=== PATIENT | female | born 1935 | race Caucasian/White ===

== ENCOUNTER 2020-08-17 19:36 | Emergency (ER) | payer MEDICARE ==
[2020-08-17 19:52] VITALS: TEMP 98
--- NOTE | 2020-08-17 19:55 | ED ---
Fall HPI - General Chief Complaint: Fall Stated Complaint: Fall - Head Injury Time Seen by Provider: 08/17/20 19:54 Source: patient, family, RN notes reviewed, old records reviewed Mode of arrival: wheelchair Limitations: no limitations - History of Present Illness Initial Comments: This is an 85-year-old female DF for evaluation patient poor historian secondary to clinical condition Parkinson's disease. Patient has history of falls multiple falls and did have a fall with head injury tonight. 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 ROS Other: All systems not noted in ROS Statement are negative. Past Medical History Past Medical History: Hypertension, Osteoarthritis (OA) Additional Past Medical History / Comment(s): parkinsons , spinal stenosis , drop foot right side History of Any Multi-Drug Resistant Organisms: None Reported Past Surgical History: Back Surgery, Joint Replacement, Tonsillectomy Past Psychological History: No Psychological Hx Reported Smoking Status: Former smoker Past Alcohol Use History: None Reported Past Drug Use History: None Reported General Exam Limitations: physical limitation General appearance: alert, in no apparent distress Head exam: Present: atraumatic, normocephalic, normal inspection Eye exam: Present: normal appearance, PERRL, EOMI. Absent: scleral icterus, conjunctival injection, periorbital swelling ENT exam: Present: normal exam, mucous membranes moist Neck exam: Present: normal inspection. Absent: tenderness, meningismus, lymphadenopathy Respiratory exam: Present: normal lung sounds bilaterally. Absent: respiratory distress, wheezes, rales, rhonchi, stridor Cardiovascular Exam: Present: regular rate, normal rhythm, normal heart sounds. Absent: systolic murmur, diastolic murmur, rubs, gallop, clicks GI/Abdominal exam: Present: soft, normal bowel sounds. Absent: distended, tenderness, guarding, rebound, rigid Extremities exam: Present: normal inspection, full ROM, normal capillary refill. Absent: tenderness, pedal edema, joint swelling, calf tenderness Back exam: Present: normal inspection Neurological exam: Present: alert, oriented X3, CN II-XII intact Psychiatric exam: Present: normal affect, normal mood Skin exam: Present: warm, dry, intact, normal color. Absent: rash Course Vital Signs 08/17/20 08/17/20 19:47 20:44 Temperature 98 F Pulse Rate 87 65 Respiratory 16 18 Rate Blood Pressure 134/63 126/64 O2 Sat by Pulse 90 L 96 Oximetry - Reevaluation(s) Reevaluation #1: 08/17/20 20:31 Medical records reviewed Medical Decision Making - Medical Decision Making 85 female DF status post fall patient does have hematoma multiple falls with head injury. No nothing broke patient can be discharged home - Radiology Data Radiology results: report reviewed (CT brain C-spine and facial bones chest x- ray and pelvis negative for acute disease), image reviewed Disposition Clinical Impression: Fall, Head injuries Disposition: HOME SELF-CARE Condition: Good Instructions (If sedation given, give patient instructions): Fall Prevention for Older Adults (ED) Is patient prescribed a controlled substance at d/c from ED?: No Referrals: Matteo Cee MD [Primary Care Provider] - 1-2 days
--- NOTE | 2020-08-17 20:31 | XR ---
EXAMINATION TYPE: XR pelvis AP view DATE OF EXAM: 08/17/2020 COMPARISON: NONE HISTORY: Fall. Pain. TECHNIQUE: Single view FINDINGS: Pelvic ring is intact. 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 Sacroiliac joints are intact. The re is no sign of fracture nor dislocation. There are spondylotic changes in the lower lumbar spine. T here is a pessary noted. IMPRESSION: No acute abnormality of the pelvis.
--- NOTE | 2020-08-17 20:32 | XR ---
EXAMINATION TYPE: XR chest 1V DATE OF EXAM: 08/17/2020 COMPARISON: NONE HISTORY: Fall. Pain. TECHNIQUE: Single view FINDINGS: There is a large hiatal hernia. There is no heart failure. Costophrenic angles are clear. T here are no hilar masses. Thoracic aorta is atheromatous. IMPRESSION: No active cardiopulmonary disease. Large hiatal hernia.
--- NOTE | 2020-08-17 20:38 | CT ---
EXAMINATION TYPE: CT brain lyle wo con DATE OF EXAM: 08/17/2020 COMPARISON: None HISTORY: fall, contusion and bruising around left eye CT DLP: combined DLP 1017.8 mGycm Automated exposure control for dose reduction was used. There is cerebral atrophy. There is no mass effect nor midline shift. There is no sign of intracrania l hemorrhage. There is mild hypodensity in the periventricular white matter. There is hyperostosis fr ontalis. The calvarium is intact. Skull base is intact. There is normal aeration of the mastoid sinus es. Cervical vertebra have normal alignment. There is disc space narrowing at C5-6 and C6-7 with spurring . There is multilevel mild cervical facet arthropathy. There is no evidence of a fracture. Occipital bone is intact. Atlantoaxial facet joint is normal. IMPRESSION: Spondylotic changes at C5-6 and C6-7. No fracture. Cerebral atrophy. No acute intracranial abnormality. Mild left frontal scalp soft tissue swelling not ed.
--- NOTE | 2020-08-17 20:40 | CT ---
EXAMINATION TYPE: CT facial bones wo con DATE OF EXAM: 08/17/2020 COMPARISON: None HISTORY: fall, contusion and bruising around left eye CT DLP: combined DLP 1017.8 mGycm Automated exposure control for dose reduction was used. Images were obtained from the bottom of the mandible to the top of the frontal sinuses without contra st. Orbital margins are intact. Nasal bone is intact. The globes are symmetric. There is no evidence of a retro-orbital mass. There is no evidence of blowout fracture. There is small mucus retention cyst in the left maxillary sinus. Zygomatic arches appear normal. The maxilla is intact. Mandibular ring is intact. Temporomandibular joints appear normal. There is mild scalp soft tissue swelling over the left side frontal bone. IMPRESSION: Small left frontal scalp hematoma. No fracture seen.
[2020-08-17 20:48] VITALS: BP 126/64; PULSE 65; RESP 18
== END 2020-08-17 21:20 | disposition home or self-care (01) ==
LOC: EC 19:36
DX: S00.03XA Contusion of scalp, initial encounter (principal); Z96.60 Presence of unspecified orthopedic joint implant; Z87.891 Personal history of nicotine dependence; W01.0XXA Fall on same level from slipping, tripping and stumbling without subsequent striking against object, initial encounter; Y93.89 Activity, other specified; Y92.092 Bedroom in other non-institutional residence as the place of occurrence of the external cause
CPT/HCPCS: 70450; 70486; 71045; 72125; 72170; 99284

== ENCOUNTER 2020-09-04 20:25 | Emergency (ER) | payer MEDICARE ==
[2020-09-04 21:46] LABS: Basophils # (A) 0.1 k/uL (0-0.2); Basophils % (A) 1 %; Eosinophils # (A) 0.1 k/uL (0-0.7); Eosinophils % (A) 1 %; HCT 44.6 % (34.0-46.0); Lymphocytes # (A) 0.9 k/uL (1.0-4.8); Lymphocytes % (A) 9 %; MCH 29.6 pg (25.0-35.0); MCHC 31.3 g/dL (31.0-37.0); MCV 94.6 fL (80.0-100.0); Mean Platelet Volume 7.9; Monocytes # (A) 0.6 k/uL (0-1.0); Monocytes % (A) 7 %; Neutrophils # (A) 7.3 k/uL (1.3-7.7); Neutrophils % (A) 80 %; Platelet Count 192 k/uL (150-450); RBC 4.71 m/uL (3.80-5.40); RDW 13.6 % (11.5-15.5); WBC 9.1 k/uL (3.8-10.6)
[2020-09-04 21:55] LABS: Albumin 3.8 g/dL (3.5-5.0); Calcium 9.2 mg/dL (8.4-10.2); Total Bilirubin 0.7 mg/dL (0.2-1.3); Total Protein 6.8 g/dL (6.3-8.2)
[2020-09-04] MEDS ORDERED: cefTRIAXone IN SWFI 1,000 MG/10 ML SYRINGE IVP STA (22:12)
--- NOTE | 2020-09-04 22:52 | ED ---
Skin/Abscess/FB HPI - General Chief complaint: Skin/Abscess/Foreign Body Stated complaint: L Leg Wound Time Seen by Provider: 09/04/20 20:52 Source: patient Mode of arrival: ambulatory Limitations: no limitations - History of Present Illness Initial comments: Patient is an 85-year-old female with history of Parkinson's disease, presenting to the emergency department with her son with complaints of a possible wound infection a left lower leg. Her son states that she fell a few weeks ago and did have a small cut in her leg but he's noticed a few days ago the wound appears to be red, swelling and he thinks it looks infected. Patient has had no fever, no chills is still able to walk. She has not been on any antibiotics for this. There is been no chest pain, shortness of breath, abdominal pain, vomiting. There are no further complaints. Upon arrival to the ER, vital signs are stable. - Related Data Home Medications Medication Instructions Recorded Confirmed Carbidopa-Levodopa 25-100 mg 1 tab PO BID@1200,2000 09/04/20 09/04/20 [Sinemet 25-100] Carbidopa-Levodopa 25-100 mg 2 tab PO DAILY@0800 09/04/20 09/04/20 [Sinemet 25-100] Simvastatin [Zocor] 40 mg PO HS 09/04/20 09/04/20 amLODIPine [Norvasc] 5 mg PO HS 09/04/20 09/04/20 Previous Rx's Medication Instructions Recorded Cephalexin [Keflex] 500 mg PO Q6HR 7 Days #28 cap 09/04/20 Allergies Allergy/AdvReac Type Severity Reaction Status Date / Time No Known Allergies Allergy Verified 09/04/20 21:41 Review of Systems ROS Statement: Those systems with pertinent positive or pertinent negative responses have been documented in the HPI. ROS Other: All systems not noted in ROS Statement are negative. Past Medical History Past Medical History: Hypertension, Osteoarthritis (OA) Additional Past Medical History / Comment(s): parkinsons , spinal stenosis , drop foot right side History of Any Multi-Drug Resistant Organisms: None Reported Past Surgical History: Back Surgery, Joint Replacement, Tonsillectomy Past Psychological History: No Psychological Hx Reported Smoking Status: Former smoker Past Alcohol Use History: None Reported Past Drug Use History: None Reported General Exam - General Exam Comments Initial Comments: GENERAL: Patient is well-developed and well-nourished. Patient is nontoxic and in no acute distress. HEAD: Atraumatic, normocephalic. EYES: Pupils equal round and reactive to light, extraocular movements intact, sclera anicteric, conjunctiva are normal. Eyelids were unremarkable. ENT: TMs normal, nares patent, oropharynx clear without exudates. Moist mucous membranes. NECK: Normal range of motion, supple without lymphadenopathy or JVD. LUNGS: Unlabored respirations. Breath sounds clear to auscultation bilaterally and equal. No wheezes rales or rhonchi. HEART: Regular rate and rhythm without murmurs, rubs or gallops. ABDOMEN: Soft, nontender, normoactive bowel sounds. No guarding, no rebound. No masses appreciated. : Deferred MUSCULOSKELETAL: Normal extremities with adequate strength and normal range of motion, no pitting or edema. No clubbing or cyanosis. NEUROLOGICAL: Patient is alert and oriented x 3. Motor and sensory are also intact. PSYCH: Normal mood, normal affect. SKIN: Warm, Dry, normal turgor. Patient has an open sore to the middle of her left lower leg, there is some active yellow drainage. There is some surrounding erythema as well. It is not warm to the touch, mildly tender. Limitations: no limitations Course Vital Signs 09/04/20 09/04/20 20:29 23:00 Temperature 98.6 F 97.9 F Pulse Rate 71 78 Respiratory 18 17 Rate Blood Pressure 169/87 155/78 O2 Sat by Pulse 98 98 Oximetry Medical Decision Making - Medical Decision Making Patient is an 85-year-old female here for possible wound infection to a cut on her left lower leg. Patient does have an erythematous 1 cm open wound to the left middle lower leg. I did do a wound culture, which is pending. Labs show a normal white count. I did give patient 1 g Rocephin in the ER. I will continue patient on Keflex as an outpatient. She is stable for discharge. She is to follow-up with her PCP in 1-3 days. Patient and patient's son is both in agreement with this plan of care. Return parameters were discussed with them and they both verbalized understanding. Case discussed with Dr. vazquez. - Lab Data Result diagrams: 09/04/20 21:39 09/04/20 21:39 Lab Results 09/04/20 09/04/20 Range/Units 21:39 21:39 WBC 9.1 (3.8-10.6) k/uL RBC 4.71 (3.80-5.40) m/uL Hgb 14.0 (11.4-16.0) gm/dL Hct 44.6 (34.0-46.0) % MCV 94.6 (80.0-100.0) fL MCH 29.6 (25.0-35.0) pg MCHC 31.3 (31.0-37.0) g/dL RDW 13.6 (11.5-15.5) % Plt Count 192 (150-450) k/uL Neutrophils % 80 % Lymphocytes % 9 % Monocytes % 7 % Eosinophils % 1 % Basophils % 1 % Neutrophils # 7.3 (1.3-7.7) k/uL Lymphocytes # 0.9 L (1.0-4.8) k/uL Monocytes # 0.6 (0-1.0) k/uL Eosinophils # 0.1 (0-0.7) k/uL Basophils # 0.1 (0-0.2) k/uL Sodium 139 (137-145) mmol/L Potassium 5.0 (3.5-5.1) mmol/L Chloride 108 H (98-107) mmol/L Carbon Dioxide 26 (22-30) mmol/L Anion Gap 5 mmol/L BUN 34 H (7-17) mg/dL Creatinine 1.00 (0.52-1.04) mg/dL Est GFR (CKD-EPI)AfAm 61 (>60 ml/min/1.73 sqM) Est GFR (CKD-EPI)NonAf 53 (>60 ml/min/1.73 sqM) Glucose 107 H (74-99) mg/dL Calcium 9.2 (8.4-10.2) mg/dL Total Bilirubin 0.7 (0.2-1.3) mg/dL AST 39 H (14-36) U/L ALT 6 (4-34) U/L Alkaline Phosphatase 62 (38-126) U/L Total Protein 6.8 (6.3-8.2) g/dL Albumin 3.8 (3.5-5.0) g/dL Disposition Clinical Impression: Left leg cellulitis Disposition: HOME SELF-CARE Condition: Stable Instructions (If sedation given, give patient instructions): Cellulitis (ED) Additional Instructions: Please return to the Emergency Department if symptoms worsen or any other concerns. Take antibiotics as prescribed. Please finish all medications. Follow-up with PCP in 1-3 days. Prescriptions: Cephalexin [Keflex] 500 mg PO Q6HR 7 Days #28 cap Is patient prescribed a controlled substance at d/c from ED?: No Referrals: Matteo Cee MD [Primary Care Provider] - 1-2 days
[2020-09-04 23:18] VITALS: BP 155/78; PULSE 78; RESP 17; TEMP 97.9
== END 2020-09-04 23:00 | disposition home or self-care (01) ==
LOC: EC 20:25
DX: L03.116 Cellulitis of left lower limb (principal); I10 Essential (primary) hypertension; G20 Parkinson's disease; Z79.899 Other long term (current) drug therapy; Z87.891 Personal history of nicotine dependence
CPT/HCPCS: 36415; 80053; 85025; 87070; 87205; 99283; 96374; J0696

== ENCOUNTER 2020-09-16 10:05 | Emergency (ER) | payer MEDICARE ==
[2020-09-16 10:11] VITALS: RESP 18; TEMP 97.4
[2020-09-16] MEDS ORDERED: KETOROLAC 15 MG/ML 1 ML VIAL IVP STA (10:32)
--- NOTE | 2020-09-16 10:34 | ED ---
Fall HPI - General Chief Complaint: Fall Stated Complaint: fall/back pain Time Seen by Provider: 09/16/20 10:11 Source: patient, family Mode of arrival: ambulatory - History of Present Illness Initial Comments: Patient is an 85-year-old female, with history Parkinson's, presenting to emergency Department with complaints of having 3 falls in the last 2 days. She is complaining of pain in her lower back, mostly in the left side. She denies any hip pain. She states she has not hit her head during these falls, no loss of consciousness. she normally walks with a walker.She denies any chest pain, shortness of breath, nausea or vomiting, abdominal pain. Patient's son is here with her now and states he feels like she is at her baseline just with the increased back pain wanted her to be seen. She has had surgeries of her back in the past. There has been no fever, chills. There are no further complaints at this time. Upon arrival to the ER her vital signs stable. - Related Data Home Medications Medication Instructions Recorded Confirmed Carbidopa-Levodopa 25-100 mg 1 tab PO BID@1200,2000 09/04/20 09/04/20 [Sinemet 25-100] Carbidopa-Levodopa 25-100 mg 2 tab PO DAILY@0800 09/04/20 09/04/20 [Sinemet 25-100] Simvastatin [Zocor] 40 mg PO HS 09/04/20 09/04/20 amLODIPine [Norvasc] 5 mg PO HS 09/04/20 09/04/20 Previous Rx's Medication Instructions Recorded Cephalexin [Keflex] 500 mg PO Q6HR 7 Days #28 cap 09/04/20 Cephalexin [Keflex] 500 mg PO BID 3 Days #6 cap 09/16/20 Allergies Allergy/AdvReac Type Severity Reaction Status Date / Time No Known Allergies Allergy Verified 09/16/20 10:11 Review of Systems ROS Statement: Those systems with pertinent positive or pertinent negative responses have been documented in the HPI. ROS Other: All systems not noted in ROS Statement are negative. Past Medical History Past Medical History: Hypertension, Osteoarthritis (OA) Additional Past Medical History / Comment(s): parkinsons , spinal stenosis , drop foot right side History of Any Multi-Drug Resistant Organisms: None Reported Past Surgical History: Back Surgery, Joint Replacement, Tonsillectomy Past Psychological History: No Psychological Hx Reported Smoking Status: Former smoker Past Alcohol Use History: None Reported Past Drug Use History: None Reported General Exam - General Exam Comments Initial Comments: GENERAL: Patient is well-developed and well-nourished. Patient is nontoxic and in no acute distress. HEAD: Atraumatic, normocephalic. EYES: Pupils equal round and reactive to light, extraocular movements intact, sclera anicteric, conjunctiva are normal. Eyelids were unremarkable. ENT: TMs normal, nares patent, oropharynx clear without exudates. Moist mucous membranes. NECK: Normal range of motion, supple without lymphadenopathy or JVD. LUNGS: Unlabored respirations. Breath sounds clear to auscultation bilaterally and equal. No wheezes rales or rhonchi. HEART: Regular rate and rhythm without murmurs, rubs or gallops. ABDOMEN: Soft, nontender, normoactive bowel sounds. No guarding, no rebound. No masses appreciated. : Deferred MUSCULOSKELETAL: no pain and normal active range of motion of bilateral hips. Patient does have some mild pain to palpation of the left lumbar spine, lumbar paraspinals. She does have full trunk range of motion. She is neurovascularly intact bilaterally lower extremities. No pitting or edema. No clubbing or cyanosis. NEUROLOGICAL: Patient is alert and oriented x 3. Motor and sensory are also intact. Cranial nerves II through XII grossly intact. Symmetrical smile. Normal speech. patient has history Parkinson's. Walks with a walker. PSYCH: Normal mood, normal affect. SKIN: Warm, Dry, normal turgor, no rashes. Patient has a small 1 cm scabbed over lesion on the left lower leg, healing well. No signs of infection. Limitations: no limitations Course Vital Signs 09/16/20 09/16/20 10:06 12:08 Temperature 97.4 F L Pulse Rate 73 57 L Respiratory 18 18 Rate Blood Pressure 175/82 145/76 O2 Sat by Pulse 98 97 Oximetry Medical Decision Making - Medical Decision Making patient is a 85-year-old female with history Parkinson's disease, presenting with having 3 falls in last 2 days and complaining of lower back pain. She has not hit her head denies falls. Signs are stable. Her exam reveals no acute findings except for some mild pain of the lumbar spine, lumbar paraspinals. Patient's labs show no acute process, urine does show 39 WBCs, large amount of leukocyte Estrace. Urine culture is pending. I did do a CT of the lumbar spine which reveals stenosis, no acute abnormalities is seen. She was given a low dose of Toradol, reports improvement in her symptoms. I will treat patient for her bacteriuria in the urine, start her on Keflex. I discussed these findings with the patient and her son. I did recommend continuing with ibuprofen as needed for discomfort. She can also apply heat or ice to the back. She is stable for discharge. Patient and her son are both in agreement with this plan of care. Return parameters were discussed with them and they both verbalized understanding. Case discussed with Dr. Barrientos. - Lab Data Result diagrams: 09/16/20 10:27 Lab Results 09/16/20 09/16/20 Range/Units 10:27 10:27 Sodium 138 (137-145) mmol/L Potassium 5.0 (3.5-5.1) mmol/L Chloride 106 (98-107) mmol/L Carbon Dioxide 26 (22-30) mmol/L Anion Gap 6 mmol/L BUN 30 H (7-17) mg/dL Creatinine 0.99 (0.52-1.04) mg/dL Est GFR (CKD-EPI)AfAm 61 (>60 ml/min/1.73 sqM) Est GFR (CKD-EPI)NonAf 53 (>60 ml/min/1.73 sqM) Glucose 173 H (74-99) mg/dL Calcium 9.5 (8.4-10.2) mg/dL Total Bilirubin 1.0 (0.2-1.3) mg/dL AST 49 H (14-36) U/L ALT 7 (4-34) U/L Alkaline Phosphatase 69 (38-126) U/L Total Protein 7.7 (6.3-8.2) g/dL Albumin 4.3 (3.5-5.0) g/dL Urine Color Yellow Urine Appearance Cloudy H (Clear) Urine pH 6.5 (5.0-8.0) Ur Specific [place] 1.020 (1.001-1.035) Urine Protein 3+ H (Negative) Urine Glucose (UA) Negative (Negative) Urine Ketones Negative (Negative) Urine Blood Negative (Negative) Urine Nitrite Negative (Negative) Urine Bilirubin Negative (Negative) Urine Urobilinogen <2.0 (<2.0) mg/dL Ur Leukocyte Esterase Large H (Negative) Urine RBC 3 (0-5) /hpf Urine WBC 39 H (0-5) /hpf Ur Squamous Epith Cells 6 H (0-4) /hpf Hyaline Casts 3 H (0-2) /lpf Urine Mucus Rare H (None) /hpf Disposition Clinical Impression: Fall, Low back pain Disposition: HOME SELF-CARE Condition: Stable Instructions (If sedation given, give patient instructions): Back Pain (ED) Additional Instructions: Please return to the Emergency Department if symptoms worsen or any other concerns. Computed tomography scan of the back revealed no acute fractures or injuries. Urine shows a mild UTI. Take antibiotics as prescribed. May take ibuprofen or Aleve for discomfort. May also apply ice or heat to the area. Follow-up with PCP as needed. Prescriptions: Cephalexin [Keflex] 500 mg PO BID 3 Days #6 cap Is patient prescribed a controlled substance at d/c from ED?: No Referrals: Matteo Cee MD [Primary Care Provider] - 1-2 days
[2020-09-16 10:47] LABS: Albumin 4.3 g/dL (3.5-5.0); Calcium 9.5 mg/dL (8.4-10.2); Total Protein 7.7 g/dL (6.3-8.2)
[2020-09-16 10:55] LABS: Appearance,Urine Cloudy (Clear); Bilirubin,Urine Negative (Negative); Blood,Urine Negative (Negative); Color,Urine Yellow; Glucose,Urine (UA) Negative (Negative); Hyaline Casts,Urine 3 /lpf (0-2); Ketones,Urine Negative (Negative); Leukocyte Esterase,Urine Large (Negative); Mucus,Urine Rare /hpf; Nitrite,Urine Negative (Negative); PH, Urine 6.5 (5.0-8.0); Protein,Urine 3+ (Negative); RBC,Urine 3 /hpf (0-5); Squamous Epithelial Cell,Urine 6 /hpf (0-4); Urobilinogen,Urine <2.0 mg/dL (<2.0); WBC,Urine 39 /hpf (0-5)
--- NOTE | 2020-09-16 11:57 | CT ---
EXAMINATION TYPE: CT lumbar spine wo con DATE OF EXAM: 09/16/2020 COMPARISON: None HISTORY: Left sided back pain post fall CT DLP: 530.9 mGycm CONTRAST: TECHNIQUE: CT of the lumbar spine is performed on a spiral scan at 3 mm thick sections. Reconstructed images are performed in the coronal and sagittal planes. FINDINGS: T12-L1: Vacuum disc phenomenon is present. No focal disc herniation or significant disc bulge is evid ent. No spinal canal stenosis or neural foraminal stenosis is present. L1-L2: Broad-based disc bulge has moderate anterior thecal sac compression. No AP spinal canal stenos is present. Facet degenerative change and ligamentum flavum laxity. Minimal vacuum disc phenomenon is present. No spinal canal stenosis is present. There is moderate left foraminal narrowing and moderat e to severe right foraminal narrowing. L2-L3: Vacuum disc phenomenon is present. There is loss of disc height is level. Broad-based disc bul ge of the residual disc material has moderate anterior thecal sac compression. Facet hypertrophy and ligamentum flavum laxity contributing to spinal canal narrowing through this level. Severe right and moderate left foraminal narrowing is present L3-L4: There is loss of disc height through this level. Residual disc material has mild anterior thec al sac compression. Facet hypertrophy has posterior lateral thecal sac compression and is contributin g to spinal canal stenosis. Mild left and moderate to severe right foraminal narrowing is present L4-L5: There is loss of disc height is level. Endplate spurring has moderate left paracentral thecal sac compression. Facet hypertrophy is present with posterior lateral thecal sac compression. These fa ctors are contributing to spinal canal stenosis. Severe left and right foraminal narrowing is present L5-S1: Broad-based disc bulge has mild anterior thecal sac compression. Facet hypertrophy is left pos terior lateral thecal sac compression. Severe left and moderate right foraminal narrowing is present. No spinal canal stenosis is present. IMPRESSION: 1. Spinal canal stenosis secondary to residual disc bulging and facet hypertrophy at the L2-3 and L4- 5 levels. 2. Multilevel residual disc bulge and facet hypertrophy contributing to foraminal narrowing discussed above. These are greater on the left than the right. 3. No acute osseous abnormality evident.
[2020-09-16 12:09] VITALS: BP 145/76; PULSE 57
== END 2020-09-16 12:25 | disposition home or self-care (01) ==
LOC: EC 10:05
DX: M48.061 Spinal stenosis, lumbar region without neurogenic claudication (principal); M54.5 Low back pain; R82.71 Bacteriuria; G20 Parkinson's disease; I10 Essential (primary) hypertension; Z79.899 Other long term (current) drug therapy; Z87.891 Personal history of nicotine dependence; Z96.60 Presence of unspecified orthopedic joint implant
CPT/HCPCS: 36415; 80053; 81001; 87086; 72131; 99284; 96374; J1885